=== PATIENT | male | born 1985 | race Caucasian/White ===

== ENCOUNTER 2016-12-28 20:40 | Emergency (ER) | payer BC ==
[2016-12-28 20:53] VITALS: BP 133/81
--- NOTE | 2016-12-28 21:51 | EDM.PDOC ---
ED HPI GENERAL MEDICAL PROBLEM - General Chief Complaint: Gastrointestinal Problem Stated Complaint: VOMITING CHEST PAIN COUGH Time Seen by Provider: 12/28/16 21:33 Source of Information: Reports: Patient, RN Notes Reviewed, Other (Fianc) History Limitations: Reports: No Limitations - History of Present Illness INITIAL COMMENTS - FREE TEXT/NARRATIVE: The patient states that he has had the sensation of food getting stuck in his throat or chest, along with pain, whenever he eats anything solid, for the past 2 years. He is able to resolve it by drinking fluids, although sometimes when he drinks fluids, the fluid may regurgitate. He is unable to describe the pain, other than it "hurts". Tonight, the patient developed the same pain when he was eating, and try to resolve the pain with milk, however, it did not resolve. He is had a few episodes of emesis, and his symptoms have now completely resolved. I had the patient swallows some of his Gatorade here in the ED, and he had no difficulty with her. The patient does not have a PCP, and has not previously had a medical evaluation for this condition. Chest Pain Score (Numeric/FACES): 6 - Related Data Allergies Allergy/AdvReac Type Severity Reaction Status Date / Time No Known Allergies Allergy Verified 12/28/16 20:53 Home Meds: Home Meds . [No Known Home Meds] 01/18/15 [History] Past Medical History - Past Surgical History HEENT Surgical History: Reports: Eye Surgery (Bilateral strabismus), Oral Surgery ([place] teeth extraction) Social & Family History - Family History Family Medical History: Noncontributory - Tobacco Use Smoking Status *Q: Current Some Day Smoker Years of Tobacco use: 10 Packs/Tins Daily: 0.1 Packs/Tins Daily Comment: Chews 1/2 can/day Used Tobacco, but Quit: No - Alcohol Use Alcohol Use History: Yes Alcohol Use Frequency: Socially - Recreational Drug Use Recreational Drug Use: No - Living Situation & Occupation Living situation: Reports: (), with Significant Other (Fianc) 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) ED ROS GENERAL - Review of Systems Review Of Systems: See Below Constitutional: Reports: No Symptoms HEENT: Reports: No Symptoms Respiratory: Reports: No Symptoms Cardiovascular: Reports: No Symptoms Endocrine: Reports: No Symptoms GI/Abdominal: Reports: No Symptoms : Reports: No Symptoms Musculoskeletal: Reports: No Symptoms Skin: Reports: No Symptoms Neurological: Reports: No Symptoms Psychiatric: Reports: No Symptoms Hematologic/Lymphatic: Reports: No Symptoms Immunologic: Reports: No Symptoms ED EXAM, GI/ABD - Physical Exam Exam: See Below Exam Limited By: No Limitations General Appearance: Alert, WD/WN, No Apparent Distress Eyes: Bilateral: Normal Appearance, EOMI Ears: Normal External Exam, Hearing Grossly Normal, Normal TMs Nose: Normal Inspection, No Blood Throat/Mouth: Normal Inspection, Normal Lips, Normal Voice, No Airway Compromise Head: Atraumatic, Normocephalic Neck: Normal Inspection, Full Range of Motion Respiratory/Chest: No Respiratory Distress, Lungs Clear, Normal Breath Sounds, No Accessory Muscle Use Cardiovascular: Normal Peripheral Pulses, Regular Rate, Rhythm, No Gallop, No JVD, No Murmur, No Rub GI/Abdominal: Normal Bowel Sounds, Soft, Non-Tender, No Organomegaly, No Distention, No Abnormal Bruit, No Mass (Male) Exam: Deferred Rectal (Males) Exam: Deferred Back Exam: Normal Inspection, Full Range of Motion, NT Extremities: Normal Inspection, Normal Range of Motion, No Pedal Edema, Normal Capillary Refill Neurological: Alert, Oriented, Normal Cognition, No Motor/Sensory Deficits Psychiatric: Normal Affect Skin Exam: Warm, Dry, Intact, Normal Color, No Rash Lymphatic: No Adenopathy Course - Vital Signs Last Recorded V/S: Last Vital Signs Temp 36.8 C 12/28/16 20:51 Pulse 70 12/28/16 20:51 Resp 18 12/28/16 20:51 BP 133/81 12/28/16 20:51 Pulse Ox 100 12/28/16 20:51 - Re-Assessments/Exams Free Text/Narrative Re-Assessment/Exam: 12/28/16 21:47 The patient is describing intermittent esophageal obstruction, although he is asymptomatic at this time, and was able to drink fluids without symptoms or regurgitation. I will refer him to Dr. Roxane Tierney for EGD. Departure - Departure Time of Disposition: 21:47 Disposition: Home, Self-Care 01 Condition: Fair Clinical Impression: Dysphagia - Discharge Information Instructions: Dysphagia Referrals: PCP,None [Primary Care Provider] - Roxane Tierney MD [Physician] - Forms: ED Department Discharge Additional Instructions: You were seen in the emergency room for painful difficulty swallowing food for the past 2 years. By history, you likely have a narrowing in your esophagus (food tube). We recommend that if you are eating meat, that you eat only small pieces, and chew well. Please follow-up with the surgeon Dr. Roxane Tierney at the next available appointment, to arrange for an EGD (scope of your esophagus and stomach). If any other problems, please do not hesitate to return to the ER.
== END 2016-12-28 21:59 | disposition home or self-care (01) ==
LOC: JD.ED 20:40
DX: R13.10 Dysphagia, unspecified (principal); F17.210 Nicotine dependence, cigarettes, uncomplicated
CPT/HCPCS: 99282; 99283

== ENCOUNTER 2020-01-20 17:54 | Emergency (ER) | payer BC ==
[2020-01-20 18:09] VITALS: BP 126/71; PULSE 73
--- NOTE | 2020-01-20 18:51 | EDM.PDOC ---
ED HPI GENERAL MEDICAL PROBLEM - General Chief Complaint: Gastrointestinal Problem Stated Complaint: RECTAL BLEEDING Time Seen by Provider: 01/20/20 18:19 Source of Information: Reports: Patient History Limitations: Reports: No Limitations - History of Present Illness INITIAL COMMENTS - FREE TEXT/NARRATIVE: Is a 34-year-old male who presents to the emergency department with 2 episodes of bleeding from his rectum. States each time the bleeding was present, he had a bowel movement. He does have some pain in his rectum as well. He describes it as mika red in color and moderate in amount. He denies any recent trauma to the rectum. States his bowel movements have been normal for him and that they were not overly hard. Denies any known history of hemorrhoids. He has no chronic health conditions. - Related Data Allergies Allergy/AdvReac Type Severity Reaction Status Date / Time No Known Allergies Allergy Verified 01/20/20 18:09 Home Meds: Home Meds . 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 Denies: Abdominal Pain, Diarrhea, Nausea, Vomiting : Reports: No Symptoms Musculoskeletal: Reports: No Symptoms Skin: Reports: No Symptoms Neurological: Reports: No Symptoms Psychiatric: Reports: No Symptoms Hematologic/Lymphatic: Reports: No Symptoms Immunologic: Reports: No Symptoms ED EXAM, GI/ABD - Physical Exam Exam: See Below Exam Limited By: No Limitations General Appearance: Alert, WD/WN, No Apparent Distress Respiratory/Chest: No Respiratory Distress, Lungs Clear, Normal Breath Sounds, No Accessory Muscle Use, Chest Non-Tender Cardiovascular: Normal Peripheral Pulses, Regular Rate, Rhythm, No Edema, No Gallop, No JVD, No Murmur, No Rub GI/Abdominal Exam: Normal Bowel Sounds, Soft, Non-Tender, No Organomegaly, No Distention, No Abnormal Bruit, No Mass, Pelvis Stable Rectal (Males) Exam: Hemorrhoids (10 o'clock position. Small in size. Does not appear thrombosed. Scant amount of bleeding.). No: Perirectal Abscess, Rectal Fissure Neurological: Alert, Oriented, CN II-XII Intact, Normal Cognition, Normal Gait, Normal Reflexes, No Motor/Sensory Deficits Psychiatric: Normal Affect, Normal Mood Skin Exam: Warm, Dry, Intact, Normal Color, No Rash Course - Vital Signs Last Recorded V/S: Last Vital Signs Temp 98.0 F 01/20/20 18:06 Pulse 73 01/20/20 18:06 Resp 16 01/20/20 18:06 BP 126/71 01/20/20 18:06 Pulse Ox 98 01/20/20 18:06 - Re-Assessments/Exams Free Text/Narrative Re-Assessment/Exam: On exam, patient does have a small hemorrhoid at the 10 o'clock position of the rectum. There is a scant amount of bleeding. Discussed with him treatment options for the hemorrhoid. Recommend increased fiber and fluids. May purchase Preparation H cream [id number]. Discussed if the symptoms do not improve over the next few days, would recommend that he follow-up in the clinic. Return to the ER as needed. Departure - Departure Time of Disposition: 18:51 Disposition: Home, Self-Care 01 Condition: Good Clinical Impression: Hemorrhoids, internal, with bleeding - Discharge Information *PRESCRIPTION DRUG MONITORING PROGRAM REVIEWED*: No *COPY OF PRESCRIPTION DRUG MONITORING REPORT IN PATIENT [place]: No Instructions: Hemorrhoids, [id number] Referrals: PCP,None [Primary Care Provider] - Additional Instructions: You were seen in the emergency department for 2 episodes of rectal bleeding while having bowel movements today. On exam, you do have a hemorrhoid that was bleeding a small amount. This is likely the cause of your discomfort and bleeding with bowel movements. Would recommend that you increase the fiber in your diet as well as your fluid intake. You may purchase [id number] Preparation H cream and use it 4 times daily to help reduce the size of the hemorrhoid and decrease inflammation. As we discussed, if this becomes an ongoing issue for you or you do not have improvement over the next few days, I would recommend that you follow-up in the clinic. Return to the ER as needed. Sepsis Event Note (ED) - Evaluation Sepsis Screening Result: No Definite Risk - Focused Exam Vital Signs: Vital Signs Temp Pulse Resp BP Pulse Ox 01/20/20 18:06 98.0 F 73 16 126/71 98
== END 2020-01-20 19:15 | disposition home or self-care (01) ==
LOC: JD.ED 17:54
DX: K64.8 Other hemorrhoids (principal); Z87.891 Personal history of nicotine dependence
CPT/HCPCS: 99282; 99283